=== PATIENT | female | born 2000 | race Caucasian/White ===

== ENCOUNTER 2022-05-15 19:21 | Emergency (ER) | payer OTHER ==
[2022-05-15 19:26] VITALS: TEMP 98.2; BMI 23.4
[2022-05-15] MEDS ORDERED: SODIUM CHLORIDE 0.9% 500 ML INFUS.BAG IV ONE (20:03)
[2022-05-15] MEDS ORDERED: ONDANSETRON 4 MG/2 ML VIAL IVPUSH ONE (20:03)
[2022-05-15] MEDS ORDERED: ACETAMINOPHEN 1000 MG/100 ML BAG IVPB ONE (20:04)
[2022-05-15 20:38] LABS: BASO % 0.2 % (0-2.0); EOS % 0.3 % (0-4.5); HEMATOCRIT 29.7 % (32.4-45.2); HEMOGLOBIN 9.9 GM/dL (10.7-15.3); LYMPH % 12.1 % (8-40); MCH 29.3 pg (25.7-33.7); MCHC 33.2 g/dl (32.0-36.0); MEAN CELL VOLUME 88.3 fl (80-96); MEAN PLT VOLUME 7.7 fl (7.5-11.1); NEUT % 79.4 % (42.8-82.8); PLATELET COUNT 243 10^3/uL (134-434); RBC 3.36 M/mm3 (3.60-5.2); RDW 14.9 % (11.6-15.6); WHITE BLOOD COUNT 8.6 K/mm3 (4.0-10.0)
[2022-05-15 20:57] LABS: ALBUMIN 2.8 g/dl (3.4-5.0); BLOOD UREA NITROGEN 9.8 mg/dL (7-18)
[2022-05-15 21:00] LABS: CREATININE 0.4 mg/dL (0.55-1.3)
[2022-05-15 21:02] LABS: BILIRUBIN,TOTAL 0.3 mg/dL (0.2-1)
[2022-05-15 21:15] LABS: PH,URINE 6.5 (5.0-8.0); URINE APPEARANCE CLEAR; URINE BILIRUBIN NEGATIVE (NEGATIVE); URINE COLOR YELLOW; URINE GLUCOSE (UA) NEGATIVE (NEGATIVE); URINE KETONE 1+ (NEGATIVE); URINE LEUK ESTERASE NEGATIVE (NEGATIVE); URINE NITRITE NEGATIVE (NEGATIVE); URINE PROTEIN NEGATIVE (NEGATIVE); URINE UROBILINOGEN 0.2 mg/dL (0.2-1.0)
[2022-05-16] MEDS ORDERED: ELECTROLYTE-148 SOLN 500 ML IV SCH (01:00)
[2022-05-16 01:10] VITALS: BP 105/61; PULSE 77; RESP 19
== END 2022-05-16 01:54 | disposition short-term general hospital (02) ==
LOC: JER 19:21
PROC: 3E033GC Introduction of Other Therapeutic Substance into Peripheral Vein, Percutaneous Approach (ICD-10-PCS; principal; 2022-05-15)
DX: O21.9 Vomiting of pregnancy, unspecified (principal); O26.892 Other specified pregnancy related conditions, second trimester; R10.31 Right lower quadrant pain; Z3A.29 29 weeks gestation of pregnancy
CPT/HCPCS: 0241U-QW; 36415; 76775-TC; 76801-TC; 76856-TC; 80053; 81003; 83605; 83690; 85025; 87086; 99284-25